=== PATIENT | male | born 1995 | race Caucasian/White ===

== ENCOUNTER 2017-02-17 12:23 | Emergency (ER) | payer BC, OTHER ==
[~2017-02-17] VITALS: Ht 175.3 cm; Wt 61.3 kg
[2017-02-17 12:32] VITALS: BP 105/65; PULSE 60; RESP 14; TEMP 97.8; O2SAT 99
[2017-02-17] MEDS ORDERED: KETOROLAC TROMETHAMINE 60 MG/2 ML (IM) VIAL IM ONE (13:15)
[2017-02-17] MEDS ORDERED: ACETAMINOPHEN/HYDROcodone 325 MG/5 MG TAB PO ONE (13:15)
--- NOTE | 2017-02-17 13:15 | PD ---
HPI Chief Complaint: Musculoskeletal Complaint Time Seen by Provider: 13:03 Travel History International Travel<30 days: No Contact w/Intl Traveler<30days: No Traveled to known affect area: No History of Present Illness HPI 21-year-old male that presents to the ED for evaluation of left shoulder pain with no injury. 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 Per patient he works in [employer]. His been working a lot and since yesterday he is developed pain to continues to get worse and worse. Per patient he has a lot of pain especially with abduction of the left shoulder. Pain is reproducible with touch at specific spots on the shoulder itself. No injury or fall. Per patient today it got more severe which is what prompted evaluation. He denies any previous injuries. No surgeries to it. No other medical issues. PFSH Past Medical History Medical History: Denies Significant Hx Diminished Hearing: No Tetanus Vaccination: < 5 Years Influenza Vaccination: No ?: Not Past Surgical History Surgical History: No Previous Surgery Social History Alcohol Use: Yes (occ) Tobacco Use: Yes (1ppd) Substance Use: No Allergies-Medications (Allergen,Severity, Reaction): Coded Allergies: No Known Allergies (Unverified , 02/17/17) Reported Meds & Prescriptions Reported Meds & Active Scripts Active No Active Prescriptions or Reported Medications Review of Systems Except as stated in HPI: all other systems reviewed are Neg Physical Exam Narrative GENERAL: SKIN: Warm and dry. HEAD: Atraumatic. Normocephalic. EYES: Pupils equal and round. No scleral icterus. No injection or drainage. ENT: No nasal bleeding or discharge. Mucous membranes pink and moist. Tongue is midline. No uvula deviation. NECK: Trachea midline. No JVD. CARDIOVASCULAR: Regular rate and rhythm. RESPIRATORY: No accessory muscle use. Clear to auscultation. Breath sounds equal bilaterally. GASTROINTESTINAL: Abdomen soft, non-tender, nondistended. Hepatic and splenic margins not palpable. MUSCULOSKELETAL: Extremities without clubbing, cyanosis, or edema. No obvious deformities. Full range of motion of the upper and lower extremities bilaterally. Patient has reproducible point tenderness on the left shoulder in 2 different spots. No is bony deformity noted. Pain with abduction past 90. Able to do it but with severe pain. Patient does have pain but also internal rotation. No pain with external rotation. Neurovascular intact. 2+ pulses bilaterally. NEUROLOGICAL: Awake and alert. No obvious cranial nerve deficits. Motor grossly within normal limits. Five out of 5 muscle strength in the arms and legs. Normal speech. PSYCHIATRIC: Appropriate mood and affect; insight and judgment normal. Data Data Last Documented VS Vital Signs Date Time Temp Pulse Resp B/P (MAP) Pulse Ox O2 Delivery O2 Flow Rate FiO2 02/17/17 12:32 97.8 60 14 105/65 (78) 99 Room Air Orders Orders Shoulder, Complete (>2vws) (02/17/17 ) Acetamin-Hydrocod 325-5 Mg ([place] 5-325 (02/17/17 13:15) Ketorolac Inj (Toradol Inj) (02/17/17 13:15) Splint Or Brace Apply/Monitor (02/17/17 13:10) [facility] Medical Decision Making Medical Screen Exam Complete: Yes Emergency Medical Condition: Yes Medical Record Reviewed: Yes Interpretation(s) X-ray of the left shoulder did not show any sign of bony injury but did show calcifications. Differential Diagnosis Fracture versus tendinitis versus muscle strain versus muscle spasm Narrative Course 21-year-old male that presents to the ED for evaluation of left shoulder pain with no injury. Patient was properly examined and was found to have signs and symptoms consistent what appears to be left shoulder pain. Likely muscle scale. Patient has point tenderness on the tendons. This appears to be a tendinitis. X-ray was done to rule out bony injury and x-ray was negative for this but did show what appears to be calcifications of the tendons. Patient does a lot of manual work and this is likely secondary to overuse. At this time I recommend trial of anti-inflammatory and pain medication. Patient was given prescriptions for this as well as first dose of them here. He will be given sling for comfort. Ice or warm compresses. Follow with PCP. See ED for worsening symptoms. Diagnosis Primary Impression: Left shoulder tendonitis Patient Instructions: Narcotic given in the ED, General Instructions Additional Instructions: Take medications as prescribed. Follow-up with PCP. See ED for any worsening symptoms. Do not drink or drive while taking pain medication. Apply ice or heat as needed for pain Med/Other Pt SpecificInfo: Prescription(s) given Scripts No Active Prescriptions or Reported Meds Disposition: 01 DISCHARGE HOME Condition: Stable Gordo Abdullahi Feb 17, 2017 13:15
[2017-02-17] MEDS ORDERED: KETO10 PO (13:16)
[2017-02-17] MEDS ORDERED: HYDR-3533 PO ×2 (13:16→13:17)
--- NOTE | 2017-02-17 13:25 | RADRPT ---
EXAM DATE/TIME: 02/17/2017 12:51 [facility] COMPARISON: No previous studies available for comparison. INDICATIONS : Left shoulder pain & limited range of motion with no known injury. MEDICAL HISTORY : None. SURGICAL HISTORY : None. ENCOUNTER: Initial ACUITY: 3 days PAIN SCORE: 7/10 LOCATION: Left shoulder FINDINGS: Multiple view examination of the left shoulder demonstrates no evidence of fracture or dislocation. S mall calcific density is identified adjacent to the greater tuberosity. The glenohumeral and acromioc lavicular joints are maintained. There is normal range of motion between internal and external rotat ion. Bony mineralization is normal. CONCLUSION: Periarticular calcific deposit characteristic of calcific tendinitis or bursitis. No evidence of fracture or dislocation. Leander Zuñiga MD on February 17, 2017 at 13:23 Board Certified Radiologist. This report was verified electronically.
== END 2017-02-17 13:45 | disposition home or self-care (01) ==
LOC: PHEFT 12:23
DX: M75.32 Calcific tendinitis of left shoulder (principal)
CPT/HCPCS: 73030; 96372; 99284; J1885

== ENCOUNTER 2017-04-06 19:43 | Emergency (ER) | payer BC, OTHER ==
[~2017-04-06] VITALS: Ht 175.3 cm; Wt 63.2 kg
[~2017-04-06 19:43] MED LIST: HYDR-3533 PO; KETO10 PO
[2017-04-06 19:52] VITALS: BP 129/87; PULSE 90; RESP 16; TEMP 98.2; O2SAT 97
[2017-04-06] MEDS ORDERED: NAPROXEN 500 MG TAB PO ONE (20:30)
[2017-04-06] MEDS ORDERED: [UNRECOGNIZED DRUG - OTHER] (20:35)
[2017-04-06] MEDS ORDERED: NAPR500T PO (20:35)
--- NOTE | 2017-04-06 20:35 | PD ---
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 He felt a bulge in his right groin, constant, moderate severity, worse with walking and lifting things. He denies any vomiting. He has never had pain like this before. PFSH Past Medical History Diminished Hearing: No Medical other: Yes (heart murmur) Tetanus Vaccination: < 5 Years Influenza Vaccination: No ?: Not Past Surgical History Surgical History: No Previous Surgery Social History Alcohol Use: Yes (occ) Tobacco Use: Yes (1ppd) Substance Use: No Allergies-Medications (Allergen,Severity, Reaction): Coded Allergies: No Known Allergies (Unverified , 04/06/17) Reported Meds & Prescriptions Reported Meds & Active Scripts Active Review of Systems Except as stated in HPI: all other systems reviewed are Neg Physical Exam Narrative GENERAL:Well appearing, no acute distress SKIN: Focused skin assessment warm and dry. HEAD: Atraumatic. Normocephalic. EYES: Pupils equal and round. No injection or drainage. ENT: Moist mucous membranes NECK: Trachea midline. CARDIOVASCULAR: Regular rate and rhythm. No murmur appreciated. RESPIRATORY: Clear to auscultation. Breath sounds equal bilaterally. GASTROINTESTINAL: Abdomen soft, non-tender, nondistended. : Inguinal hernia defect palpable in the right groin, no incarceration or strangulation MUSCULOSKELETAL: No obvious deformities. NEUROLOGICAL: Awake and alert. No obvious cranial nerve deficits. Moving all extremities. PSYCHIATRIC: Appropriate mood and affect; insight and judgment normal. Data Data Last Documented VS Vital Signs Date Time Temp Pulse Resp B/P (MAP) Pulse Ox O2 Delivery O2 Flow Rate FiO2 04/06/17 19:52 98.2 90 16 129/87 (101) 97 Orders Orders Naproxen (Naprosyn) (04/06/17 20:30) [facility] Medical Decision Making Medical Screen Exam Complete: Yes Emergency Medical Condition: Yes Differential Diagnosis Inguinal hernia, strangulated hernia, bowel obstruction, incarcerated hernia Narrative Course This is a 21-year-old male who presents to the emergency department with pain in his right groin. He has evidence of a right inguinal hernia on exam. He has no evidence of complication with no signs of strangulation, incarceration or bowel obstruction. I think is appropriate for outpatient management. He was given anti-inflammatories, a prescription for hernia belt and advised to follow up with general surgery. Diagnosis Primary Impression: Inguinal hernia Qualified Codes: K40.90 - Unilateral inguinal hernia, without obstruction or gangrene, not specified as recurrent Referrals: [facility] Patient Instructions: General Instructions Additional Instructions: If you develop severe or worsening abdominal pain, fever>100.4, persistent vomiting or inability to eat or drink return to the emergency department immediately. Med/Other Pt SpecificInfo: Prescription(s) given Scripts Naproxen (Naproxen) 500 Mg Tab 500 MG PO BID Y for PAIN SCALE 4 TO 10, #20 TAB 0 Refills Prov: Shirlene Chambers MD 04/06/17 Hernia Support/Right/Med (Hernia Support/Right/Med) 1 Mis Mis EA .ROUTE DIRECTED, #1 Prov: Shirlene Chambers MD 04/06/17 Disposition: 01 DISCHARGE HOME Condition: Stable Shirlene Chambers MD Apr 06, 2017 20:35
== END 2017-04-06 20:48 | disposition home or self-care (01) ==
LOC: PHED 19:43
DX: K40.90 Unilateral inguinal hernia, without obstruction or gangrene, not specified as recurrent (principal); F17.200 Nicotine dependence, unspecified, uncomplicated
CPT/HCPCS: 99283